=== PATIENT | female | born 1965 | race Caucasian/White ===

== ENCOUNTER 2016-07-30 01:28 | Inpatient (IN) | payer OTHER ==
[~2016-07-30] VITALS: Ht 175.3 cm; Wt 74.8 kg
[~2016-07-30 01:28] MED LIST: OMEPRAZOLE40 M1 PO; XANAX0.25 M1 PO
[2016-07-30 12:24] VITALS: BP 120/84
[2016-07-30 14:00] VITALS: BP 120/88
--- NOTE | 2016-07-30 15:41 | NUR ---
PT ARRIVED TO FLOOR AT 1224 VIA STRETCHER FROM PACU. REPORT TAKEN FROM ZAHIRA. PT DROWSY/EASILY AROUSABLE TO VERBAL STIMULI AND ORIENTED X3. VSS. ON ROOM AIR. LOW ABD DSG PRESENT, SCANT BLOODY DRAINAGE PRESENT. ABD BINDER IN PLACE. DEAL CATHETER PRESENT DRAINING BLOODY URINE. PT REPORTS PAIN 10/10 AT INCISION SITE. ON CADDIE PUMP, 47.7 MG LEFT, 26 INJECTIONS OUT OF 29 ATTEMPTS. CADDIE BATTERY LOW, THIS RN CHANGED CADDIE BATTTERY AND CADDIE RESET TO 0/0 INJECTIONS (ACTUAL/ATTEMPTS). PT REPORTS FEELING ANXIETY ABOUT BEING IN HOSPITAL AND DISTRESS OVER RECENT LOSS OF , REQUESTING PRIVATE ROOM. REQUEST MADE AWARE TO MARBLE MACHINE OPERATOR RADHA MIRANDA. PT ORIENTED TO ROOM AND CALL BROOKE. SAFETY MAINTAINED, NEEDS IN REACH.
--- NOTE | 2016-07-30 15:59 | Operative Report ---
Operative/Inv Procedure Report Surgery Date: 07/30/16 Name of Procedure: cystoscopy: bilateral stent insertion Pre-Operative Diagnosis: MENOMETRORRHAGIA Post-Operative Diagnosis: same Estimated Blood Loss: scant Surgeon/Automation Test Engineer: MD PAINTER [facility]NOLD-UROLOGY Anesthesia: general endotracheal tube Specimens: UCX Complications: NONE Operative/Procedure Note Note: The patient was taken to the operating room and placed on the OR table in supine position. Timeout was performed, with the patient awake, to confirm identify, planned procedures, anesthesia, antibiotics and other pertinent santiago-operative information. After adequate anesthesia, and IV antibiotics, the patient was placed in lithotomy Yellow-fin stirrups. She was then draped and prepped in the usual surgical fashion, including a vaginal prep. A 22 Slovenian cystoscope sheath with a 30 angle lens was inserted into the bladder without significant difficulty. The bladder was thoroughly and systematically examined, and was noted to be free of tumor, free of stone, free of endometriosis. Both ureteral orifices were in their orthotopic positions with clear reflux bilaterally. Under direct visualization the left orifice was intubated with a 5 Slovenian whistle-tip catheter, which was advanced easily into the left kidney pelvis. The right ureteral orifice was intubated with a second 5 Slovenian ureteral whistle tip catheter, and advanced into the right renal pelvis without difficulty. For identification purposes the blue marked stent went into the left kidney and the right ureteral stent was marked red. Urine culture was obtained and sent to pathology. The cystoscope was then removed leaving both stents in proper place. An 18 Slovenian Danielson catheter was inserted draining clear fluid and 10 mL of sterile water was then placed in the balloon. The ends ureteral stents, which protruded externally, were taped to the Danielson catheter in order to secure their position. The individual ureteral stents were then connected to their individual drainage devices. The patient tolerated the procedure well. All sponge needle and instrument count were correct at the end of this procedure. The patient was then placed in supine position with Venodyne's in place. At this point, Dr. Doyle was able to proceed with her patient's surgery. Findings: NORMAL BLADDER Discharge Disposition: PROCEED WITH DR. DOYLE CC: LUDWIN PAINTER MD
[2016-07-30 16:01] VITALS: BP 122/76
[2016-07-30 18:00] VITALS: BP 120/82
[2016-07-30 20:00] VITALS: BP 120/80
[2016-07-30 22:00] VITALS: BP 120/62
--- NOTE | 2016-07-30 22:19 | NUR ---
LATE ENTRY: PT ASKING FOR "SOMETHING TO EAT" "EVEN SOMETHING TO DRINK" "I TRIED CALLING DR. DOYLE MYSELF BUT THEY SAID THE NURSE HAS TO CALL" STATING THAT SHE IS NOT NAUSEOUS AND THAT SHE KNOWS SHE CAN "HANDLE IT WITHOUT GETTING SICK" PT HAS +BS HYPOACTIVE IN [place], BUT ABSENT OTHERWISE, DENIES NAUSEA, NO FLATUS, AND CURRENT ORDER IS FOR NPO UNTIL TOMORROW. CALL PLACED TO DR. DOYLE, WHO STATED IT IS OKAY TO GIVE HER ICE CHIPS, SIP OF WATER, AND OK TO GIVE CHICKEN BROTH. ICE CHIPS AND CHICKEN BROTH GIVEN TO PT AND TAKEN WITHOUT COMPAINTS OF INCREASED PAIN, AND CONTINUES TO DENY NAUSEA. WILL CONTINUE TO MONITOR.
[2016-07-31] VITALS (9 sets, daily range): BP systolic 104–122; BP diastolic 60–70
[2016-07-31] MEDS ORDERED: IBUPROFEN800 M1 PO (09:23)
[2016-07-31] MEDS ORDERED: PERCOCET 5-3251 EACH PO (09:23)
--- NOTE | 2016-07-31 09:25 | PN- Post Delivery/GYN ---
Subjective Subjective: NO COMPLAINTS Objective Last 24 Hrs of Vital Signs/I&O Vital Signs Date Time Temp Pulse Resp B/P B/P Pulse O2 O2 Flow FiO2 Mean Ox Delivery Rate / 0845 97.6 67 20 120/60 96 Room Air 06/09 0600 98.2 62 16 114/70 06/09 0600 98.2 62 16 114/70 95 Room Air 06/09 0400 98.2 60 16 104/70 06/09 0357 98.2 60 16 104/70 92 Room Air 06/09 0200 98.5 79 16 122/70 06/09 0200 98.5 79 16 122/70 96 Room Air 06/09 0000 98.1 70 16 122/64 06/09 0000 98.1 70 16 122/64 94 Room Air 06/08 2200 98.5 82 20 120/62 94 Room Air 06/08 2000 98.3 89 20 120/80 94 Room Air 06/08 1800 97.2 68 20 120/82 94 Room Air 06/08 1601 97.5 80 20 122/76 95 Room Air 06/08 1400 97.5 70 18 120/88 06/08 1400 97.5 70 18 120/88 97 Room Air 06/08 1224 97.9 60 18 120/84 06/08 1224 97.9 60 18 120/84 97 Room Air Intake & Output / 1600 /09 0800 06/09 0000 Intake Total 1000 Output Total 625 700 Balance -625 300 Intake, IV 1000 Output, Urine 625 700 Physical Exam: PALE WF ABD SOFT NT EXT -EDEMA -HOMANS INCISION CDI Assessment/Plan Assessment/Plan ASSESS S/P TAHBSO PLAN CONT REGF DIET
[2016-07-31 10:16] LABS: ABSOLUTE BASOPHIL COUNT 0 /CUMM (0.0-0.2); ABSOLUTE EOSINOPHIL COUNT 0 /CUMM (0.0-0.7); EOSINOPHIL % 0 % (0-5); MEAN PLATELET VOLUME 8.2 FL (7.4-10.4); WHITE BLOOD CELL COUNT 12.5 /CUMM (4.8-10.8)
[2016-07-31 10:20] LABS: ABSOLUTE GRANULOCYTE CT 8.5 /CUMM (1.4-6.5); ABSOLUTE LYMPH COUNT 2.8 /CUMM (1.2-3.4); ABSOLUTE MONOCYTE COUNT 1.2 /CUMM (0.10-0.60); BASOPHIL % 0.3 % (0.0-2.0); GRANULOCYTE % 68.2 % (42.2-75.2); MEAN CORPUSCULAR HGB 30.7 PG (27.0-31.0); MEAN CORPUSCULAR HGB CONC 33.9 G/DL (33.0-37.0); MEAN CORPUSCULAR VOLUME 90.5 FL (81.0-99.0); PLATELET COUNT 245 /CUMM (130-400); RED BLOOD CELL CT 3.92 /CUMM (4.20-5.40)
[2016-07-31 10:21] LABS: HEMATOCRIT 35.5 % (37-47)
--- NOTE | 2016-07-31 17:52 | NUR ---
1600- DISCHARGE ORDER PLACED BY DR. DOYLE FOR TODAY 07/31/16. PER PATIENT, DR DOYLE CLEARLY SAID HER DISCHARGE WAS TO BE TOMORROW MORNING 08/01/16. PT HAD XIANG 07/30/16. BREASTFEEDING PEER COUNSELOR AND DEAL DISCONTINUED TODAY. CALL PLACED TO DR. DOYLE'S ANSWERING SERVICE. DR. ANGEL ENGINEERING WRITER AND RETURNED PAGE. PER DR. ANGEL, DISCHARGE IS TOMORROW, NOT TODAY. DR. ANGEL NOT PRESENT IN HOSPITAL AT THIS TIME AND PLACED TELEPHONE ORDER FOR DISCHARGE TO BE CHANGED TO 08/01/16.
[2016-08-01 07:44] VITALS: BP 120/70
--- NOTE | 2016-08-03 19:07 | Operative Report ---
Operative/Inv Procedure Report Surgery Date: 07/30/16 Name of Procedure: Supracervical hysterectomy bilateral salpingo-oophorectomy Pre-Operative Diagnosis: Pelvic pain Post-Operative Diagnosis: Abdomen no myosis and same Estimated Blood Loss: 500 Surgeon/Filling Winder: VIVEK SHAH,RUDDY Martinez [facility] Anesthesia: general endotracheal tube, block Operative/Procedure Note Note: Procedure note patient was seen the operating room placed on position after adequate induction general anesthesia via endotracheal tube patient placed in dorsolithotomy position the vagina prepped of for fashion bladder was catheterized cystoscopy performed by Job Metcalf MD placed stents at this point patient was returned spine position the abdomen was prepped draped so fashion through Pfannenstiel skin incision skin was cut was carried down to rectus fascia which was cut in curvilinear fashion I direction peritoneal cavity was entered high into the abdomen the Steele O'Alberto was placed in usual fashion to avoid the obturator nerves patient was placed in Trendelenburg lap pads were placed into the abdomen rings this point the uterus was oversewn using 0 suture on the round ligaments on the right and left the bladder flap was developed sharply at this point sequentially cervical branches of the uterine artery on the right and left were identified clamped cut and oversewn using 0 suture patient tolerated this well specimen was removed the cervical cuff with a Bovie at this point is oversewn running locking suture of 0 indicated interrupted [id number]'s of 0 this point the stents were identified on the right left the endopelvic artery and the right was clamped 2 the right ovary and tube were removed the pedicle was oversewn using 0 suture times to hemostasis was apparent the infundibulopelvic artery on the left was identified clamped 2 left ovary and tube were removed the pedicle was oversewn 2 using 0 the abdomen was area close amounts warm saline until clear the peritoneum was reapproximated using 0 after a Ristow was applied to the cervical cuff the patient tolerated this well it was a supracervical hysterectomy. The far shows reapproximated to continue sutures #1 skin was reapproximated using ruth at the end the case the stents were removed after the vagina had been irrigated and found to be hemostatic the patient was extubated awakened from anesthesia and transported to recovery room awake and alert after sterile dressing had been applied to the incision Findings: 10-12 week size fibroid uterus normal atrophic postmenopausal ovaries bilaterally otherwise normal anatomy
[2016-08-11] MEDS ORDERED: PERCOCET 5-3251 EACH PO (03:41)
== END 2016-08-01 10:06 | DRG 513 ==
LOC: DELPENDDIS → SDA 01:28 → 2NA 01:28 → SDA 07:00 → ENRESERV 10:38 → ENTRNSPT 11:54 → EDTRNSPTTYP 12:01 → EDTRNSPT 12:01 → 2NA 12:22 → CMPTRNSPT 12:36 → 2NA 19:31 → ENPENDDIS 07-31 09:23 → 2NA 08-01 10:06
PROVIDERS: ADMIT Specialist
PROC: 0UT20ZZ Resection of Bilateral Ovaries, Open Approach (ICD-10-PCS; principal; 2016-07-30)
PROC: 0UT70ZZ Resection of Bilateral Fallopian Tubes, Open Approach (ICD-10-PCS; principal; 2016-07-30)
PROC: 0UT90ZZ Resection of Uterus, Open Approach (ICD-10-PCS; principal; 2016-07-30)
PROC: 0T788DZ Dilation of Bilateral Ureters with Intraluminal Device, Via Natural or Artificial Opening Endoscopic (ICD-10-PCS; 2016-07-30)
PROC: 3E0T3CZ (ICD-10-PCS; 2016-07-30)
DX: N92.1 Excessive and frequent menstruation with irregular cycle (principal); R10.2 Pelvic and perineal pain; K21.9 Gastro-esophageal reflux disease without esophagitis; F17.200 Nicotine dependence, unspecified, uncomplicated
CPT/HCPCS: 2NAP; 36415; 81001; 81025; 87086; 88307; J0131; J0694; J1100; J1170; J1200; J1650; J1885; J2405